=== PATIENT | female | born 1990 | race Caucasian/White ===

== ENCOUNTER 2017-06-13 10:59 | Emergency (ER) | payer BC ==
[2017-06-13] MEDS ORDERED: ACETAMINOPHEN 325 MG TAB PO ONE (11:26)
[2017-06-13] MEDS ORDERED: LORAZEPAM 0.5 MG TABLET PO ONE (11:26)
--- NOTE | 2017-06-13 11:27 | Emergency Department Record ---
History of Present Illness - General Chief Complaint: Hypertension Stated Complaint: CHEST DISCOMFORT Time Seen by Provider: 06/13/17 11:23 Source: Patient Mode of Arrival: Ambulatory Limitations: No limitations - History of Present Illness Initial Comments: The patient is here due to vague chest discomfort for one day. She describes the discomfort as an aching throbbing mild pain that is worse with any movement or twisting. There is no reported cough, SOB, BAUDILIO, sweating or nausea associated. 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 The patient denies any cardiac risk factors. MD Complaint: Other Onset/Timin -: Days(s) Timing: Unsure Description: Other History of Same: No History of Trauma: No Severity: Mild Improves With: Rest Worsens With: Movement - Hussain Coma Scale Eye Response: (4) Open spontaneously Motor Response: (6) Obeys commands Verbal Response: (5) Oriented [place] Total: 15 - Related Data Home Medications Medication Instructions Recorded Confirmed Last Taken Quetiapine Fumarate [Seroquel] 50 mg PO ASDIR 06/13/17 06/13/17 06/12/17 Previous Rx's Medication Instructions Recorded Lorazepam [Ativan] 0.5 mg PO Q12HR #6 tablet 06/13/17 Allergies Allergy/AdvReac Type Severity Reaction Status Date / Time No Known Allergies Allergy PT UNSURE Unverified 06/13/17 11:03 OF REACTION Travel Screening - Travel/Exposure Within Last 30 Days Have you traveled within the last 30 days?: No - Travel/Exposure Within Last Year Have you traveled outside the [place] in the last year?: Yes Location Detail:: [facility] - Additonal Travel Details Have you been exposed to anyone with a communicable illness?: No - Travel Symptoms Symptom Screening: None Review of Systems Constitutional: Denies: Chills, Fever Eyes: Denies: Eye discharge ENT: Denies: Congestion Respiratory: Denies: Cough, Dyspnea Past Medical History - SOCIAL HISTORY Smoking Status: Former smoker Alcohol Use: Rare Drug Use: None - RESPIRATORY Hx Respiratory Disorders: Yes Hx Asthma: Yes (sports induced) - CARDIOVASCULAR Hx Cardio Disorders: No - NEURO Hx Neuro Disorders: No - GI Hx GI Disorders: No - Hx Genitourinary Disorders: No - ENDOCRINE Hx Endocrine Disorders: No - MUSCULOSKELETAL Hx Musculoskeletal Disorders: No - PSYCH Hx Psych Problems: Yes Hx Anxiety: Yes Hx Depression: Yes Comment:: bipolar - HEMATOLOGY/ONCOLOGY Hx Hematology/Oncology Disorders: No Family Medical History Any Significant Family History?: Yes Hx Cancer: Mother Hx Depression: Mother Hx HTN: Mother Physical Exam - General General Appearance: Alert, Oriented x3, Cooperative, No acute distress - Head Head exam: Atraumatic, Normocephalic, Normal inspection - Eye Eye exam: Normal appearance, PERRL - ENT Throat exam: Normal inspection. negative: Tonsillar erythema, Tonsillar exudate - Neck Neck exam: Normal inspection, Full ROM. negative: Tenderness - Respiratory Respiratory exam: Normal lung sounds bilaterally, Chest wall tenderness (There is tenderness to the anterior chest wall that does reproduce the chest pain 100% .). negative: Respiratory distress - Cardiovascular Cardiovascular Exam: Regular rate, Normal rhythm, Normal heart sounds - GI/Abdominal GI/Abdominal exam: Soft, Normal bowel sounds. negative: Tenderness - Extremities Extremities exam: Normal inspection, Full ROM, Normal capillary refill. negative: Calf tenderness, Pedal edema, Tenderness - Neurological Neurological exam: Alert, Normal gait. negative: Abnormal gait, Motor sensory deficit Course Vital Signs 06/13/17 11:09 Temperature 98 F Pulse Rate 95 H Respiratory 20 Rate Blood Pressure 147/100 Pulse Ox 99 - Reevaluation(s) Reevaluation #1: The patient is feeling much better. The pain is much improved and is still very reproducible. I did explain to her that her test results are WNL's and that we will have her see her PCP early next week for recheck. 06/13/17 12:28 Reevaluation #2: The patient is doing very well at this time and denies any PLATT. Her discomfort in the chest has mainly resolved and she is ready for home. 2nd EKG: Normal with HR of 89. 06/13/17 12:55 06/13/17 12:58 Medical Decision Making - Data Complexity MDM Data: Labs Ordered and/or Reviewed, X-Ray Ordered and/or Reviewed, EKG Ordered and/or Reviewed - Lab Data Result diagrams: 06/13/17 11:40 06/13/17 11:40 - EKG Data -: EKG Interpreted by Me EKG: No Acute Changes, Normal EKG - Radiology Data Radiology results: Report reviewed (CXR: Neg.) Disposition Disposition: Discharge Clinical Impression: Atypical chest pain Disposition: Home, Self-Care Condition: (2) Stable Instructions: Hypertension (ED) Additional Instructions: Please monitor your BP and see your PCP next week for recheck. Please take Tylenol or Motrin for pain and use the Ativan as directed. Return to the ER for any increased pain, trouble breathing or shortness of breath. Prescriptions: Lorazepam [Ativan] 0.5 mg PO Q12HR #6 tablet Forms: Patient Portal Access Time of Disposition: 12:59 Quality - Quality Measures Quality Measures: N/A - Blood Pressure Screening View Details: Yes Does Patient Have Any of the Following: No Blood Pressure Classification: Hypertensive Reading Systolic Measurement: 147 Diastolic Measurement: 100 Screening for High Blood Pressure: < First Hypertensive BP, F/U Documented > [ G8950] First Hypertensive Follow-up Interventions: Referral to alternative/primary care provider.
[2017-06-13 11:46] LABS: BASO % 0.4 % (0-6); EOS % 4.2 % (0-6); GRAN % 64.6 % (47-80); HEMATOCRIT 38.9 % (35.0-47.0); HEMOGLOBIN 12.9 gm/dl (11.6-16.0); LYMPH % 25.1 % (16-45); MEAN CORPUSCULAR HEMOGLOBIN 28.9 pg (27-33); MEAN CORPUSCULAR HGB CONC 33.2 g/dl (32-36); MEAN PLATELET VOLUME 10.6 fl (7.4-10.4); MONO % 5.7 % (0-9); PLATELET COUNT 245 K/uL (130-400); RED BLOOD COUNT 4.47 M/uL (3.80-5.40); WHITE BLOOD COUNT W/O DIFF 7.9 K/uL (4.2-12.2)
[2017-06-13 12:01] LABS: BLOOD UREA NITROGEN 9 mg/dL (6-20)
[2017-06-13 12:02] LABS: CREATININE 0.7 mg/dL (0.5-0.9); EST GLOMERULAR FILTRATION RATE > 60 mL/min
[2017-06-13 12:04] LABS: GLUCOSE,RANDOM 139 mg/dL (74-109)
[2017-06-13 12:07] LABS: CREATINE PHOSPHOKINASE 159 U/L (26-192)
[2017-06-13 12:09] LABS: CKMB 1.6 ng/mL (<3.77)
--- NOTE | 2017-06-14 09:38 | RADIOLOGY REPORT ---
EXAM: CHEST, TWO VIEWS HISTORY: CHEST PAIN SINCE YESTERDAY. HYPERTENSION. TECHNIQUE: Upright PA and lateral views of the chest were obtained. Comparison: None. FINDINGS: The cardiomediastinal silhouette is normal in size and configuration. The pulmonary vasculature is nondilated. The lungs and pleural spaces are clear. There is minimal S-shaped curvature of the thoracic spine. IMPRESSION: NO RADIOGRAPHIC EVIDENCE OF ACUTE CARDIOPULMONARY DISEASE. JOB NUMBER: [id number] [facility]
== END 2017-06-13 13:20 | disposition home or self-care (01) ==
LOC: ER 10:59
DX: R07.89 Other chest pain (principal); R03.0 Elevated blood-pressure reading, without diagnosis of hypertension; R51 Headache; Z87.891 Personal history of nicotine dependence
CPT/HCPCS: 71046; 80048; 82550; 82553; 84484; 85025; 93005; 93010; 99284

== ENCOUNTER 2017-08-21 12:25 | Emergency (ER) | payer BC ==
--- NOTE | 2017-08-21 13:08 | Emergency Department Record ---
History of Present Illness - General Chief Complaint: Headache Migraine Stated Complaint: headache 6xdays,nausea,vomiting Time Seen by Provider: 08/21/17 12:55 Source: Patient, RN notes reviewed Mode of Arrival: Ambulatory - History of Present Illness Initial Comments: nausea and vomiting since august 07, diarrhea since august 07. Vomiting once a day and diarrhea times four a day. No fevers Onset/Timin -: Week(s) Onset Description: Gradual Location: Diffuse Severity scale (1-10): 7 Quality: Throbbing Consistency: Constant Improves With: Nothing Worsens With: Light, Noise Associated Symptoms: Photophobia, Sensitivity to sound Treatments Prior to Arrival: Ibuprofen, Other - Related Data Home Medications Medication Instructions Recorded Confirmed Last Taken Lamotrigine [Lamictal] 150 mg PO BID 08/21/17 08/21/17 08/21/17 Trazodone HCl 100 mg PO QHS 08/21/17 08/21/17 08/20/17 Previous Rx's Medication Instructions Recorded Naproxen [Naprosyn] 500 mg PO BID #20 tablet 08/21/17 Allergies Allergy/AdvReac Type Severity Reaction Status Date / Time No Known Allergies Allergy PT UNSURE Verified 08/21/17 12:31 OF REACTION Travel Screening - Travel/Exposure Within Last 30 Days Have you traveled within the last 30 days?: No - Travel/Exposure Within Last Year Have you traveled outside the [place] in the last year?: No - Additonal Travel Details Have you been exposed to anyone with a communicable illness?: No - Travel Symptoms Symptom Screening: None Review of Systems Reviewed: No additional complaints except as noted below Constitutional: Reports: As per HPI. Denies: Chills, Fever, Malaise, Night sweats, Weakness, Weight change Eyes: Reports: As per HPI. Denies: Eye discharge, Eye pain, Photophobia, Vision change ENT: Reports: As per HPI. Denies: Congestion, Dental pain, Ear pain, Epistaxis , Hearing loss, Throat pain Respiratory: Reports: As per HPI. Denies: Cough, Dyspnea, Hemoptysis, Stridor, Wheezes Cardiovascular: Reports: As per HPI. Denies: Arrhythmia, Chest pain, Dyspnea on exertion, Edema, Murmurs, Orthopnea, Palpitations, Paroxysmal nocturnal dyspnea, Rheumatic Fever, Syncope Endocrine: Reports: As per HPI. Denies: Fatigue, Heat or cold intolerance, Polydipsia, Polyuria Gastrointestinal: Reports: As per HPI, Diarrhea, Nausea, Vomiting. Denies: Abdominal pain, Constipation, Hematemesis, Hematochezia, Melena Genitourinary: Reports: As per HPI. Denies: Abnormal menses, Discharge, Dyspareunia, Dysuria, Frequency, Hematuria, Incontinence, Retention, Urgency Musculoskeletal: Reports: As per HPI. Denies: Arthralgia, Back pain, Gout, Joint swelling, Myalgia, Neck pain Skin: Reports: As per HPI. Denies: Bruising, Change in color, Change in hair/ nails, Lesions, Pruritus, Rash Neurological: Reports: As per HPI. Denies: Abnormal gait, Confusion, Headache, Numbness, Paresthesias, Seizure, Tingling, Tremors, Vertigo, Weakness Psychiatric: Reports: As per HPI. Denies: Anxiety, Auditory hallucinations, Depression, Homicidal thoughts, Suicidal thoughts, Visual hallucinations Hematological/Lymphatic: Reports: As per HPI. Denies: Anemia, Blood Clots, Easy bleeding, Easy bruising, Swollen glands Past Medical History - SOCIAL HISTORY Smoking Status: Current every day smoker Alcohol Use: Rare Drug Use: None - RESPIRATORY Hx Respiratory Disorders: Yes Hx Asthma: Yes (sports induced) - CARDIOVASCULAR Hx Cardio Disorders: No - NEURO Hx Neuro Disorders: No - GI Hx GI Disorders: No - Hx Genitourinary Disorders: No - ENDOCRINE Hx Endocrine Disorders: No - MUSCULOSKELETAL Hx Musculoskeletal Disorders: No - PSYCH Hx Psych Problems: Yes Hx Anxiety: Yes Hx Depression: Yes Comment:: bipolar - HEMATOLOGY/ONCOLOGY Hx Hematology/Oncology Disorders: No Family Medical History Any Significant Family History?: Yes Hx Cancer: Mother Hx Depression: Mother Hx HTN: Mother Course Vital Signs 08/21/17 12:50 Temperature 98.1 F Pulse Rate 78 Respiratory 20 Rate Blood Pressure 137/94 Pulse Ox 99 Medical Decision Making - Lab Data Result diagrams: 08/21/17 13:20 08/21/17 13:20 Disposition Clinical Impression: Viral syndrome Vomiting Qualifiers: Vomiting type: unspecified Vomiting Intractability: non-intractable Nausea presence: with nausea Qualified Code(s): R11.2 - Nausea with vomiting, unspecified Diarrhea Qualifiers: Diarrhea type: infectious Qualified Code(s): A09 - Infectious gastroenteritis and colitis, unspecified Headache Qualifiers: Headache type: unspecified Headache chronicity pattern: acute headache Intractability: not intractable Qualified Code(s): R51 - Headache Disposition: Home, Self-Care Condition: (1) Good Instructions: Acute Headache (ED), Viral Syndrome (ED) Additional Instructions: fluids follow up with a family DrFilipe in 2 days Prescriptions: Naproxen [Naprosyn] 500 mg PO BID #20 tablet Forms: Patient Portal Access Time of Disposition: 15:38 Quality - Quality Measures Quality Measures: N/A - Blood Pressure Screening Does Patient Have Any of the Following: No Blood Pressure Classification: Hypertensive Reading Systolic Measurement: 137 Diastolic Measurement: 94 Screening for High Blood Pressure: < Pre-Hypertensive BP, F/U Documented > [ G8950] Pre-Hypertensive Follow-up Interventions: Referral to alternative/primary care provider.
[2017-08-21] MEDS: DIPHENHYDRAMINE HCL 50 MG/ML VIAL IVP ONE (13:30)
[2017-08-21] MEDS: METOCLOPRAMIDE HCL 10 MG/2 ML VIAL IVP ONE (13:30)
[2017-08-21 13:31] LABS: BASO % 0.4 % (0-6); EOS % 10.5 % (0-6); GRAN % 55.4 % (47-80); HEMATOCRIT 39.7 % (35.0-47.0); LYMPH % 28.1 % (16-45); MEAN CORPUSCULAR HEMOGLOBIN 28.8 pg (27-33); MEAN CORPUSCULAR HGB CONC 32.7 g/dl (32-36); MEAN PLATELET VOLUME 10.1 fl (7.4-10.4); MONO % 5.6 % (0-9); PLATELET COUNT 277 K/uL (130-400); RED BLOOD COUNT 4.51 M/uL (3.80-5.40); RED CELL DISTRIBUTION WIDTH 13.3 % (11.5-14.5); WHITE BLOOD COUNT W/O DIFF 7.2 K/uL (4.2-12.2)
[2017-08-21] MEDS: 0.9 % SODIUM CHLORIDE 1,000 ML BAG IV ONE (13:31)
[2017-08-21] MEDS: KETOROLAC 30 MG/ML VIAL IVP ONE (13:31)
[2017-08-21 13:42] LABS: BLOOD UREA NITROGEN 9 mg/dL (6-20); CREATININE 0.6 mg/dL (0.5-0.9); EST GLOMERULAR FILTRATION RATE > 60 mL/min
[2017-08-21 13:45] LABS: GLUCOSE,RANDOM 140 mg/dL (74-109)
[2017-08-21 13:47] LABS: ALBUMIN 4.6 g/dL (4.0-5.0); ALKALINE PHOSPHATASE 68 U/L (35-104); ALT/SGPT 53 U/L (<33); AST/SGOT 54 U/L (10.0-35.0)
[2017-08-21 13:48] LABS: BILIRUBIN,DIRECT < 0.2 mg/dL (0-0.3); LIPASE 16 U/L (13-60)
[2017-08-21] MEDS ORDERED: 0.9 % SODIUM CHLORIDE 1000ML 1,000 ML IV ONE (14:34)
[2017-08-21 15:30] LABS: URINE APPEARANCE CLEAR; URINE BILIRUBIN NEGATIVE (NEGATIVE); URINE BLOOD NEGATIVE (NEGATIVE); URINE COLOR YELLOW; URINE GLUCOSE (UA) NEGATIVE (NEGATIVE); URINE KETONE NEGATIVE (NEGATIVE); URINE LEUKOCYTE ESTERASE NEGATIVE (NEGATIVE); URINE NITRITE NEGATIVE (NEGATIVE); URINE PROTEIN NEGATIVE (NEGATIVE); URINE UROBILINOGEN 0.2 E.U./dL (0.20 - 1.00)
[2017-08-21 15:33] LABS: HCG,QUALITATIVE URINE NEGATIVE (NEGATIVE)
== END 2017-08-21 16:03 | disposition home or self-care (01) ==
LOC: ER 12:25
DX: A09 Infectious gastroenteritis and colitis, unspecified (principal); R51 Headache; R11.2 Nausea with vomiting, unspecified; H53.149 Visual discomfort, unspecified
CPT/HCPCS: 99284 ×2; 96374; 96375; 96361; 83690; 85025; 80076; 80048; 81003; 81025; J1885; J1200; J2765; J7030